=== PATIENT | female | born 1995 | race Two or more races ===

== ENCOUNTER 2019-11-25 05:25 | Inpatient (IN) | payer OTHER ==
--- NOTE | 2019-11-25 06:42 | HP ---
Past Medical History - Primary Care Physician PCP:: Barak Billings - Admission Chief Complaint: 40.4 weeks, labor History of Present Illness: 24 yo f 40.4 weeks ,in labor , fhr cat 1, irregular contraction, cx cm 80 vx , -2 mi, fhr cat 1, care uneventful, GBS negatie History Source: Patient Limitations to Obtaining History: No Limitations - Past Medical History ...: 1 ...Para: 0 ...Term: 0 ...: 0 ...Spon : 0 ...Induced : 0 ...Living Children: 0 ...LMP: 02/16/19 ... Weeks Gestation by Dates: 40.2 ...EDC by Dates: 11/23/19 ...EDC by Sono: 11/21/19 - Past Surgical History Hx Myomectomy: No Hx Transabdominal Cerclage: No - Smoking History Have you smoked in the past 12 months: No - Alcohol/Substance Use Hx Alcohol Use: No History of Substance Use: reports: None - Social History Usual Living Arrangement: Yes: With Spouse History of Recent Travel: No Review of Systems - Review of Systems Constitutional: reports: No Symptoms Eyes: reports: No Symptoms HENT: reports: No Symptoms Neck: reports: No Symptoms Cardiovascular: reports: No Symptoms Respiratory: reports: No Symptoms Gastrointestinal: reports: No Symptoms Genitourinary: reports: No Symptoms Breasts: reports: No Symptoms Reported Musculoskeletal: reports: No Symptoms Integumentary: reports: No Symptoms Neurological: reports: No Symptoms Endocrine: reports: No Symptoms Hematology/Lymphatic: reports: No Symptoms Psychiatric: reports: No Symptoms Physical Exam - Maternity Vital Signs: Vital Signs Temperature 98.5 F 11/25/19 06:04 Pulse Rate 69 11/25/19 06:04 Respiratory Rate 18 11/25/19 06:04 Blood Pressure 107/71 11/25/19 06:04 O2 Sat by Pulse Oximetry (%) Constitutional: Yes: Well Nourished, No Distress, Calm Eyes: Yes: WNL, Conjunctiva Clear, EOM Intact HENT: Yes: WNL, Atraumatic, Normocephalic Neck: Yes: WNL, Supple, Trachea Midline Cardiovascular: Yes: WNL, Regular Rate and Rhythm Breast(s): Yes: WNL - Abdominal Exam/OB Fundal Height: 40 Number of Fetuses: Single Presentation: Vertex Contractions: Yes Regularity: Irregular Intensity: Mod/Strong Monitor Mode: External Heart Rate Location: [facility] Category: I Accelerations: Non-Uniform Decelerations: None - Vaginal Exam/OB Vaginal Bleeding: Bloody Show Speculum Exam: No Dilatation (cm): 3 Effacement (%): 80 Amniotic Membrane Status: Bulging Presentation: Vertex/Position Station: -2 - Physical Exam Musculoskeletal: Yes: WNL Extremities: Yes: WNL Edema: Yes Edema: LLE: Trace, RLE: Trace Deep Tendon Reflex Grade: Normal +2 Psychiatric: Yes: WNL Hemorrhage Risk Assessment - Risk Factors Medium Risk Factors: Yes: None High Risk Factors: Yes: None Risk Score: 1 Risk Level: Medium Risk Problem List - Problems (1) Post term over 40 weeks Code(s): O48.0 - POST-TERM (2) Labor established Code(s): RJH1199 - Assessment/Plan admit [facility] pain management
[2019-11-25 06:43] VITALS: BMI 31.8
[2019-11-25] MEDS: ELECTROLYTE-148 SOLN 1,000 ML IV SCH (06:48)
[2019-11-25 07:21] LABS: BASO % 0.3 % (0-2.0); EOS % 0.2 % (0-4.5); HEMATOCRIT 34.9 % (32.4-45.2); HEMOGLOBIN 12.3 GM/dL (10.7-15.3); LYMPH % 22.9 % (8-40); MCH 33.5 pg (25.7-33.7); MCHC 35.1 g/dl (32.0-36.0); MEAN CELL VOLUME 95.4 fl (80-96); MEAN PLT VOLUME 8.5 fl (7.5-11.1); MONO % 8.1 % (3.8-10.2); NEUT % 68.5 % (42.8-82.8); PLATELET COUNT 196 K/MM3 (134-434); RBC 3.66 M/mm3 (3.60-5.2); RDW 12.5 % (11.6-15.6); WHITE BLOOD COUNT 8.9 K/mm3 (4.0-10.0)
[2019-11-25 07:23] LABS: INR 0.88 (0.83-1.09); PROTHROMBIN TIME (PATIENT) 10.7 SEC (9.7-13.0)
[2019-11-25 07:31] LABS: BLOOD UREA NITROGEN 7.1 mg/dL (7-18); CALCIUM 8.9 mg/dL (8.5-10.1); CREATININE 0.6 mg/dL (0.55-1.3); POTASSIUM 4.1 mmol/L (3.5-5.1)
[2019-11-25] MEDS ORDERED: ePHEDrine SULFATE 50 MG/1 ML AMPULE ONE (07:38)
[2019-11-25] MEDS ORDERED: PHENYLEPHRINE HCL 10 MG/1 ML SINGLE DOSE VIAL ONE (07:38)
[2019-11-25] MEDS ORDERED: PCA PUMP NR ONE (07:40)
[2019-11-25] MEDS ORDERED: SUCCINYLCHOLINE CHLORIDE 200 MG/10 ML SYRINGE ONE (07:43)
[2019-11-25] MEDS ORDERED: FENTANYL/BUPIVACAINE/NS/PF - PCEA - 50 ML DISP.SYRIN EP ONE ×2 (07:58→11:47)
[2019-11-25] MEDS ORDERED: NALOXONE HCL 0.4 MG/ML VIAL IVPUSH PRN (08:33)
[2019-11-25] MEDS ORDERED: FENTANYL/BUPIVACAINE/NS/PF - PCEA - 50 ML DISP.SYRIN EP SCH ×2 (08:45→12:30)
[2019-11-25] MEDS ORDERED: OXYTOCIN 30 UNITS in 0.9% NS 30 UNIT/500 ML INFUS.BAG IVPB SCH (09:30)
[2019-11-25] MEDS ORDERED: OXYTOCIN 20 UNITS in 0.9% NS 20 UNIT/1,000 ML INFUS.BAG IV ONE ×2 (13:15→18:13)
[2019-11-25] MEDS ORDERED: BENZOCAINE 28 GM HEMORRHOIDAL OINTMENT TP PRN (15:11)
[2019-11-25] MEDS ORDERED: WITCH HAZEL 50% (TUCKS) 40 PAD/JAR PAD TP PRN (15:11)
[2019-11-25] MEDS ORDERED: BISACODYL 10 MG SUPP.RECT RC PRN (15:11)
[2019-11-25] MEDS ORDERED: METHYLERGONOVINE MALEATE 0.2 MG/1 ML AMP IM PRN (15:11)
[2019-11-25] MEDS ORDERED: BENZOCAINE 20% 57 GM BOTTLE TP PRN (15:11)
--- NOTE | 2019-11-25 15:14 | PN ---
Progress Note (short form) - Note Progress Note: 210 PM cx full 100 vx 2+ station , bulging membrane , AROM clear fhr cat 1, regular contraction Problem List - Problems (1) Post term over 40 weeks Code(s): O48.0 - POST-TERM (2) Labor established Code(s): FLQ0559 -
--- NOTE | 2019-11-25 15:14 | PN ---
Delivery - Delivery Vaginal Delivery: Spontaneous (cx full , head on pernium, medain episiotomy done , head delivered , nasopharynx suctioned , cord around neck once reduced , ant and post .shoulder with no difficulty , live baby girl , 9/9, placenat complete spontaneeous , median episiotomy repaired with 2.o chromic , in 3 layers , baby bonded with mom , ebl 400 cc , rectal exam good tone ,no defect . , post delivery had oozing seen at vaginal interetous one figure of 8. 2.o chromic suture placed , no active bleeding seen) Type of Anesthesia: Local, Epidural Episiotomy/Laceration: Midline Delivery, Single - 1 Minute Total Score: 8 5 Minutes Total Score: 9 - Feeding Plan Initial Plan: Elected not to breastfeed exclusively throughout hospitalization
[2019-11-25] MEDS ORDERED: BUTORPHANOL TARTRATE 2 MG/ML VIAL IVPUSH ONE (15:20)
[2019-11-25] MEDS ORDERED: BUTORPHANOL TARTRATE 2 MG/ML VIAL ONE (15:22)
[2019-11-25] MEDS ORDERED: LIDOCAINE HCL 1% PRESERVATIVE FREE - 30ML VIAL ONE ×2 (15:23→17:49)
[2019-11-25] MEDS ORDERED: IBUPROFEN 600 MG TABLET (FP) PO ONE (17:03)
[2019-11-25] MEDS ORDERED: ACETAMINOPHEN 325 MG TABLET (FP) ONE (17:03)
[2019-11-25] MEDS: IBUPROFEN 600 MG TABLET (FP) PO PRN (17:05)
[2019-11-25] MEDS: ACETAMINOPHEN 325 MG TABLET (FP) PO PRN (17:36)
[2019-11-25] MEDS: OXYTOCIN 20 UNITS in 0.9% NS 20 UNIT/1,000 ML INFUS.BAG IV SCH (18:15)
[2019-11-25 19:04] LABS: BASO % 0.1 % (0-2.0); HEMOGLOBIN 12.3 GM/dL (10.7-15.3); LYMPH % 8.8 % (8-40); MCH 33.3 pg (25.7-33.7); MCHC 34.3 g/dl (32.0-36.0); MEAN CELL VOLUME 97.2 fl (80-96); MEAN PLT VOLUME 8.8 fl (7.5-11.1); MONO % 7.8 % (3.8-10.2); NEUT % 83.3 % (42.8-82.8); PLATELET COUNT 173 K/MM3 (134-434); RBC 3.71 M/mm3 (3.60-5.2); RDW 12.5 % (11.6-15.6); WHITE BLOOD COUNT 12.8 K/mm3 (4.0-10.0)
[2019-11-25] MEDS ORDERED: ceFAZolin SODIUM 1 GM VIAL IVPB ONE (19:15)
[2019-11-25] MEDS ORDERED: ONDANSETRON 4 MG/2 ML VIAL IVPUSH PRN (20:46)
[2019-11-25] MEDS ORDERED: LACTATED RINGERS SOLUTION 1,000 ML IV SCH (21:00)
--- NOTE | 2019-11-25 21:56 | OP ---
Operative Note - Note: Operative Date: 11/25/19 Pre-Operative Diagnosis: post bleedng Operation: EUA, suction D&C , examination of cervix and re suturing of episiotomy Findings: vaginal mucosa edema, and oozing , Surgeon: Barak Billings Alarm Field Technician: Matthew Cook ([facility]) Anesthesia: Spinal Specimens Removed: none Estimated Blood Loss (mls): 200 Drains & Tubes with Location: epps Blood Volume Replaced (mls): 0 Operative Report Dictated: Yes
[2019-11-25] MEDS ORDERED: HYDROmorphone HCl 2 MG/ML VIAL ONE (22:24)
[2019-11-25] MEDS ORDERED: HYDROmorphone HCl 2 MG/ML VIAL IVPB ONE (22:26)
[2019-11-25] MEDS ORDERED: HYDROmorphone HCL CARPU-JECT 2 MG/1 ML DISP.SYRIN IVPB ONE (22:26)
[2019-11-25] MEDS: FERROUS SO4 325 MG TABLET (FP) PO SCH (23:52)
[2019-11-26] MEDS: ACETAMINOPHEN 1000 MG/100 ML VIAL (NON FORMULARY) IVPB PRN ×3 (00:07→14:26)
[2019-11-26] MEDS: OXYTOCIN 20 UNITS in 0.9% NS 20 UNIT/1,000 ML INFUS.BAG IV SCH (00:09)
[2019-11-26] MEDS: oxyCODONE HCL 5 MG TABLET PO PRN ×3 (04:09→22:36)
[2019-11-26] MEDS: ACETAMINOPHEN 325 MG TABLET (FP) PO PRN (04:10)
[2019-11-26 08:18] LABS: BASO % 0.3 % (0-2.0); EOS % 0.3 % (0-4.5); HEMATOCRIT 29.9 % (32.4-45.2); HEMOGLOBIN 10.6 GM/dL (10.7-15.3); LYMPH % 18.4 % (8-40); MCH 34.1 pg (25.7-33.7); MCHC 35.3 g/dl (32.0-36.0); MEAN CELL VOLUME 96.8 fl (80-96); MEAN PLT VOLUME 8.6 fl (7.5-11.1); MONO % 8.3 % (3.8-10.2); NEUT % 72.7 % (42.8-82.8); PLATELET COUNT 149 K/MM3 (134-434); RBC 3.09 M/mm3 (3.60-5.2); RDW 12.3 % (11.6-15.6); WHITE BLOOD COUNT 9.4 K/mm3 (4.0-10.0)
--- NOTE | 2019-11-26 09:48 | PN ---
Post Progress Note - Subjective Subjective: Patient reports headache and back pain. Reports did not sleep much last night. Reports tolerating oral intake without nausea or vomiting. Denies fevers or chills. Voiding. Desires to breastfeed. Passing flatus. Type of Delivery: Vital Signs: Vital Signs Temperature 97.7 F 11/26/19 06:35 Pulse Rate 80 11/26/19 06:35 Respiratory Rate 18 11/26/19 06:35 Blood Pressure 103/52 L 11/26/19 06:35 O2 Sat by Pulse Oximetry (%) 95 11/25/19 23:05 Breast Exam: Yes: Soft Uterus: Yes: Fundus Firm Abdomen/GI: Yes: Abdomen soft, Tender (mild tenderness), Passing flatus, Tolerating PO. No: Abdominal Distention Lochia: Yes: Serosa Lochia, amount: Moderate Extremities: Yes: Calves non-tender. No: Edema Perineum: Yes: Episiotomy - Labs Labs: CBC WBC 9.4 K/mm3 (4.0-10.0) 11/26/19 07:42 RBC 3.09 M/mm3 (3.60-5.2) L 11/26/19 07:42 Hgb 10.6 GM/dL (10.7-15.3) L 11/26/19 07:42 Hct 29.9 % (32.4-45.2) L D 11/26/19 07:42 MCV 96.8 fl (80-96) H 11/26/19 07:42 MCH 34.1 pg (25.7-33.7) H 11/26/19 07:42 MCHC 35.3 g/dl (32.0-36.0) 11/26/19 07:42 RDW 12.3 % (11.6-15.6) 11/26/19 07:42 Plt Count 149 K/MM3 (134-434) 11/26/19 07:42 MPV 8.6 fl (7.5-11.1) 11/26/19 07:42 Absolute Neuts (auto) 6.9 K/mm3 (1.5-8.0) 11/26/19 07:42 Neutrophils % 72.7 % (42.8-82.8) 11/26/19 07:42 Lymphocytes % 18.4 % (8-40) D 11/26/19 07:42 Monocytes % 8.3 % (3.8-10.2) 11/26/19 07:42 Eosinophils % 0.3 % (0-4.5) D 11/26/19 07:42 Basophils % 0.3 % (0-2.0) 11/26/19 07:42 Nucleated RBC % 0 % (0-0) 11/26/19 07:42 Assessment/Plan 24 yo PPD # 1 s/p complicated by PPH, s/p D&C, afebrile, vital signs stable 1. Headache - suspect secondary to fatigue, lack of sleep s/p oxycodone currently on clears, will give caldolor Plan to advance diet 2. Will continue to monitor for signs of infection 3. AM CBC with mild anemia, will monitor for signs of symptomatic anemia 4. Rh positive status, no rhogam indicated. 5. Encourage ambulation 6. Discharge planning pending patient continues to be afebrile, vital signs stable, voiding without difficulty and no additional bleeding
[2019-11-26] MEDS ORDERED: IBUPROFEN 800 MG/8 ML IJ IVPB ONE (09:57)
[2019-11-26] MEDS: SENNOSIDES 8.6MG TABLET (FP) PO SCH ×2 (10:23→21:06)
[2019-11-26] MEDS: PRENATAL VITAMINS W/ FOLIC ACID TABLET (FP) PO SCH (10:47)
[2019-11-26] MEDS: FERROUS SO4 325 MG TABLET (FP) PO SCH ×2 (10:47→21:06)
--- NOTE | 2019-11-26 13:21 | OP ---
DATE OF OPERATION: 11/25/2019 PREOPERATIVE DIAGNOSIS: vaginal bleeding. POSTOPERATIVE DIAGNOSIS: vaginal bleeding. PROCEDURE: Examination under anesthesia and exploration of the uterus, cervix, vagina, and episiotomy, and episiotomy repair. SURGEON: Lokesh Archer MD STUDIO MUSICIAN: Matthew Cook MD; Alonso Batista MD ANESTHESIA: Spinal anesthesia. ANESTHESIOLOGIST: TIGRE Gonsalves ESTIMATED BLOOD LOSS: 200 mL. INDICATION: I was called post delivery to evaluate the patient with some vaginal trickling and complaining of severe vaginal pain. On arrival to delivery room, patient would now allow any examination or evaluation of the bleeding. Therefore, to rule out hematoma, patient was advised to go examination under anesthesia and exploration of the vagina and episiotomy area. DESCRIPTION OF PROCEDURE: Patient was taken to the operating room. Under adequate spinal anesthesia, vagina, perineum, and abdomen were prepped and draped. [place] catheter was inserted. First the episiotomy area was evaluated, and there was no active bleeding, but the vaginal mucosa was very edematous and was oozing with the touch and the manipulation with the retractors. Cervical area was grasped with 2 ring forceps and evaluated. No active bleeding or laceration of the cervix was seen. Then suction curet was inserted into the uterine cavity, and the uterus was suctioned. Again, no products of conception were seen. Then both vaginal fornices were evaluated, no sign of hematoma or laceration. Again the vaginal mucosa was very edematous and easy bleeding with contact. Therefore, the episiotomy sutures, several of them were removed, and then again vaginal mucosa was evaluated. No hematoma or laceration was seen. Several sutures of [id number] 2-0 chromic sutures were placed at the vaginal introitus, which was slightly oozing, but no active bleeding. Then the episiotomy sutures that were removed were replaced with 2-0 chromic suture, and the episiotomy was repaired. the mucosa was edematous and oozing, Surgicel gauze was placed in the vaginal area for hemostasis. Patient tolerated the procedure well, left the OR in good condition. LOKESH ARCHER M.D. /[id number]
[2019-11-26] MEDS: ACETAMINOPHEN/CAFFEINE/BUTALBITAL 1 TAB PO PRN (19:00)
[2019-11-26] MEDS ORDERED: SENNOSIDES/DOCUSATE COMBO (SENNA PLUS) TABLET (UD) PO PRN (22:00)
--- NOTE | 2019-11-27 05:19 | DS ---
Physical Exam-CLERK ENTRY LEVEL Vital Signs: Vital Signs Temperature 98.4 F 11/26/19 22:00 Pulse Rate 85 11/26/19 22:00 Respiratory Rate 18 11/26/19 22:00 Blood Pressure 118/74 11/26/19 22:00 O2 Sat by Pulse Oximetry (%) 100 11/26/19 11:00 Labs: CBC, BMP 11/26/19 07:42 11/25/19 06:59 Delivery - Delivery Vaginal Delivery: Spontaneous (cx full , head on pernium, medain episiotomy done , head delivered , nasopharynx suctioned , cord around neck once reduced , ant and post .shoulder with no difficulty , live baby girl , 9/9, placenat complete spontaneeous , median episiotomy repaired with 2.o chromic , in 3 layers , baby bonded with mom , ebl 400 cc , rectal exam good tone ,no defect . , post delivery had oozing seen at vaginal interetous one figure of 8. 2.o chromic suture placed , no active bleeding seen) Type of Anesthesia: Local, Epidural Episiotomy/Laceration: Midline EBL (cc): 400 Delivery, Single - Stages of Labor Date 1st Stage Initiatied: 11/24/19 Time 1st Stage Initiated: 23:00 Date 2nd Stage Initiated: 11/25/19 Time 2nd Stage Initiated: 14:10 Date of Delivery: 11/25/19 Time of Delivery: 14:25 Time Placenta Delivered: 14:30 - Condition of [employer]/Nursing Home Aide Present: [place]: Carlos Eduardo Allen Gender: Female Weight: 7 lb Position: Left, OA Total Hours ROM (Hrs/Mins): 20mins - 1 Minute Total Score: 8 5 Minutes Total Score: 9 - [place] Feeding Plan Initial Plan: Elected not to breastfeed exclusively throughout hospitalization Discharge Summary Problems reviewed: Yes Reason For Visit: LABOR ADMIT Current Active Problems Labor established (Acute) Post term over 40 weeks (Acute) Procedures: Principal: vaginal delivery Other Procedures: D&C, EUA Hospital Course: Patient was admitted in labor. She progressed to deliver a viable female via . Immediate noted to have increased bleeding, underwent EUA/D&C PPD # 1 patient ambulated, voiding, passing gas, tolerating oral intake. Noted to have headache, normal BPs, no scotomata or RUQ pain. PPD #2 noticed to have continued positional HARP, suspected postdural puncture headhace PPD # 3 underwent blood patch She fulfilled all criteria for discharge home POD #4 Condition: Good - Instructions Diet, Activity, Other Instructions: Follow up 2-3 weeks for early visit Physical activity Resume your normal everyday activity as tolerated no heavy lifting or exercise until seen by your surgeon. You may walk unlimited yasmani of and climb stairs. You may resume driving the car when you feel safe and comfortable behind the wheel. No sexual activity as instructed. Diet There are no dietary restrictions. Eat healthy, high-fiber foods. Drink 6 to 8 glasses of liquid each day. This will assist in keeping your bowels are regular. Pain management You may take Tylenol or acetaminophen or Ibuprofen (for example, Motrin, Advil etc.) for pain. Any prescription medication is ordered should be taken as prescribed for moderate to severe pain. Call MD for any of the following: Severe pain not relieved by medication Fever of 101 or higher Excessive bleeding or drainage on dressing Inability to urinate Referrals: Barak Billings MD [Staff Physician] - Disposition: HOME - Home Medications Comprehensive Discharge Medication List: Ambulatory Orders Pnv No.95/Ferrous Fum/Folic AC [ Formula] 1 each PO DAILY 11/25/19 Oxycodone HCl/Acetaminophen [Percocet 5-325 mg Tablet] 1 tab PO Q6H #10 tablet MDD 4 11/27/19 Prescription Drug Monitoring Program (I-STOP) results: I-STOP reviewed and no issues identified (Reference #: [id number])
[2019-11-27] MEDS: ACETAMINOPHEN/CAFFEINE/BUTALBITAL 1 TAB PO PRN (06:15)
[2019-11-27] MEDS: ELECTROLYTE-148 SOLN 1,000 ML IV SCH (07:28)
--- NOTE | 2019-11-27 08:04 | PN ---
Progress Note (short form) - Note Progress Note: 24F POD#2 spinal anesthesia for vaginal lac repair. Pt c/o positional headache. Pain 5/10 in pain while sitting/standing and 1/10 while lying down. No focal neurological symptoms. VSS. Motor/sensory exam intact. Pain is highly suspicious for PDPH. Management options explained to patient included conservative therapy: Tylenol, hydration and caffeine vs. blood patch. At this time patient wishes to proceed with conservative therapy for the next 24 hours and to re-evaluate.
[2019-11-27] MEDS: SENNOSIDES 8.6MG TABLET (FP) PO SCH ×2 (09:22→22:37)
[2019-11-27] MEDS: PRENATAL VITAMINS W/ FOLIC ACID TABLET (FP) PO SCH (09:22)
[2019-11-27] MEDS: FERROUS SO4 325 MG TABLET (FP) PO SCH ×2 (09:22→22:37)
[2019-11-27] MEDS: ACETAMINOPHEN 325 MG TABLET (FP) PO PRN (11:48)
[2019-11-27] MEDS: oxyCODONE HCL 5 MG TABLET PO PRN ×2 (16:12→22:41)
[2019-11-27] MEDS: OXYTOCIN 20 UNITS in 0.9% NS 20 UNIT/1,000 ML INFUS.BAG IV SCH (18:14)
--- NOTE | 2019-11-28 08:08 | PN ---
Progress Note (short form) - Note Progress Note: Anesthesia Post op/pain Pt seen and examined S:Alert and awake comfortable with mild residual pain O: Vital Signs Temperature 97.5 F L 11/27/19 22:00 Pulse Rate 86 11/27/19 22:00 Respiratory Rate 18 11/27/19 22:00 Blood Pressure 114/55 L 11/27/19 22:00 O2 Sat by Pulse Oximetry (%) 100 11/26/19 11:00 CBC, BMP 11/26/19 07:42 11/25/19 06:59 A/P: Current Active Problems Labor established (Acute) Post term over 40 weeks (Acute) s/p c section PDP headache better Doing well post op Continue current care Kwame Manning MD
[2019-11-28] MEDS: IBUPROFEN 600 MG TABLET (FP) PO PRN ×2 (08:48→13:03)
[2019-11-28] MEDS: ACETAMINOPHEN 325 MG TABLET (FP) PO PRN ×2 (08:49→13:03)
--- NOTE | 2019-11-28 09:20 | PN ---
Post Progress Note - Subjective Subjective: Patient reports continued headache s/p bloodpatch Improved laying flat No visual changes, no difficulty with light Also reports back/neck pain Normal lochia Passing flatus, tolerating PO intake Post Day: 3 Type of Delivery: Vital Signs: Vital Signs Temperature 98.3 F 11/28/19 09:07 Pulse Rate 87 11/28/19 09:07 Respiratory Rate 18 11/28/19 09:07 Blood Pressure 107/68 11/28/19 09:07 O2 Sat by Pulse Oximetry (%) 100 11/26/19 11:00 Breast Exam: Yes: Soft Uterus: Yes: Fundus Firm Abdomen/GI: Yes: Abdomen soft, Passing flatus, Tolerating PO. No: Abdominal Distention, Tender Lochia: Yes: Rubra Lochia, amount: Small Extremities: Yes: Calves non-tender. No: Edema Perineum: Yes: Episiotomy Activity: Ambulating - Labs Labs: CBC WBC 9.4 K/mm3 (4.0-10.0) 11/26/19 07:42 RBC 3.09 M/mm3 (3.60-5.2) L 11/26/19 07:42 Hgb 10.6 GM/dL (10.7-15.3) L 11/26/19 07:42 Hct 29.9 % (32.4-45.2) L D 11/26/19 07:42 MCV 96.8 fl (80-96) H 11/26/19 07:42 MCH 34.1 pg (25.7-33.7) H 11/26/19 07:42 MCHC 35.3 g/dl (32.0-36.0) 11/26/19 07:42 RDW 12.3 % (11.6-15.6) 11/26/19 07:42 Plt Count 149 K/MM3 (134-434) 11/26/19 07:42 MPV 8.6 fl (7.5-11.1) 11/26/19 07:42 Absolute Neuts (auto) 6.9 K/mm3 (1.5-8.0) 11/26/19 07:42 Neutrophils % 72.7 % (42.8-82.8) 11/26/19 07:42 Lymphocytes % 18.4 % (8-40) D 11/26/19 07:42 Monocytes % 8.3 % (3.8-10.2) 11/26/19 07:42 Eosinophils % 0.3 % (0-4.5) D 11/26/19 07:42 Basophils % 0.3 % (0-2.0) 11/26/19 07:42 Nucleated RBC % 0 % (0-0) 11/26/19 07:42 Assessment/Plan 24 yo PPD # 3 s/p complicated by PPH, s/p D&C, afebrile, vital signs stable 1. Headache - s/p evaluation by anesthesia and bloodpatch Will plan to monitor today, if sx improved, plan to DC home 2. Patient encouraged to contact MD for: - Severe pain not controlled by oral pain medication - Fevers or chills - Nausea or vomiting, intolerance of oral intake 3. Patient to follow up in office in 4-6 weeks for visit
--- NOTE | 2019-11-28 09:30 | PROC ---
Procedure Note Procedure: Procedure Note Called to place an epidural blood patch. Consent obtained. BP 107/73/ 73 Streil prep and drape L3-4 level 18G tuohy needle X1 +ALLYSON In sterile fashion blood obtained by Leyda Woodson R.N. 20 cc blood injected Pt tolerated procedure well. BP 113/67 67 Pt instructed to lie down. To be evaluated for improvement. Kwame Manning MD
[2019-11-28] MEDS: SENNOSIDES 8.6MG TABLET (FP) PO SCH ×2 (11:48→21:32)
[2019-11-28] MEDS: PRENATAL VITAMINS W/ FOLIC ACID TABLET (FP) PO SCH (11:48)
[2019-11-28] MEDS: FERROUS SO4 325 MG TABLET (FP) PO SCH ×2 (11:48→21:32)
[2019-11-29] MEDS: PRENATAL VITAMINS W/ FOLIC ACID TABLET (FP) PO SCH (09:01)
[2019-11-29] MEDS: IBUPROFEN 600 MG TABLET (FP) PO PRN (09:01)
[2019-11-29] MEDS: FERROUS SO4 325 MG TABLET (FP) PO SCH (09:02)
[2019-11-29] MEDS: ACETAMINOPHEN 325 MG TABLET (FP) PO PRN (09:02)
[2019-11-29] MEDS: SENNOSIDES 8.6MG TABLET (FP) PO SCH (09:02)
[2019-11-29 11:23] VITALS: BP 103/64; PULSE 71; TEMP 98.2
--- NOTE | 2019-11-29 12:19 | PN ---
Post Progress Note - Subjective Subjective: Feels much improved No Headache Reports tolerating oral intake without nausea or vomiting. Denies fevers or chills. Voiding. Desires to breastfeed. Passing flatus. Type of Delivery: Vital Signs: Vital Signs Temperature 98.2 F 11/29/19 09:00 Pulse Rate 71 11/29/19 09:00 Respiratory Rate 18 11/29/19 09:00 Blood Pressure 103/64 11/29/19 09:00 O2 Sat by Pulse Oximetry (%) 100 11/26/19 11:00 Breast Exam: Yes: Soft Uterus: Yes: Fundus Firm Abdomen/GI: Yes: Abdomen soft Lochia: Yes: Rubra Lochia, amount: Small Extremities: Yes: Calves non-tender Perineum: Yes: Laceration Activity: Ambulating - Labs Labs: CBC WBC 9.4 K/mm3 (4.0-10.0) 11/26/19 07:42 RBC 3.09 M/mm3 (3.60-5.2) L 11/26/19 07:42 Hgb 10.6 GM/dL (10.7-15.3) L 11/26/19 07:42 Hct 29.9 % (32.4-45.2) L D 11/26/19 07:42 MCV 96.8 fl (80-96) H 11/26/19 07:42 MCH 34.1 pg (25.7-33.7) H 11/26/19 07:42 MCHC 35.3 g/dl (32.0-36.0) 11/26/19 07:42 RDW 12.3 % (11.6-15.6) 11/26/19 07:42 Plt Count 149 K/MM3 (134-434) 11/26/19 07:42 MPV 8.6 fl (7.5-11.1) 11/26/19 07:42 Absolute Neuts (auto) 6.9 K/mm3 (1.5-8.0) 11/26/19 07:42 Neutrophils % 72.7 % (42.8-82.8) 11/26/19 07:42 Lymphocytes % 18.4 % (8-40) D 11/26/19 07:42 Monocytes % 8.3 % (3.8-10.2) 11/26/19 07:42 Eosinophils % 0.3 % (0-4.5) D 11/26/19 07:42 Basophils % 0.3 % (0-2.0) 11/26/19 07:42 Nucleated RBC % 0 % (0-0) 11/26/19 07:42 Assessment/Plan 24yo P1 now, s/p doing well, VSS s/p Blood patch HARP resolved d/c home RTO 4-6wks NPV for 6wks
== END 2019-11-29 14:45 | disposition home or self-care (01) | DRG 541 ==
LOC: JDEL 05:25 → JLDR 06:10 → J3W 23:00
PROVIDERS: ADMIT Obstetrics & Gynecology; ATTEND Obstetrics & Gynecology
PROC: 10D17ZZ Extraction of Products of Conception, Retained, Via Natural or Artificial Opening (ICD-10-PCS; 2019-11-25)
PROC: 0W3R7ZZ Control Bleeding in Genitourinary Tract, Via Natural or Artificial Opening (ICD-10-PCS; 2019-11-25)
PROC: 10907ZC Drainage of Amniotic Fluid, Therapeutic from Products of Conception, Via Natural or Artificial Opening (ICD-10-PCS; 2019-11-25)
PROC: 0W8NXZZ Division of Female Perineum, External Approach (ICD-10-PCS; 2019-11-25)
PROC: 10E0XZZ Delivery of Products of Conception, External Approach (ICD-10-PCS; principal; 2019-11-25 18:45)
PROC: 3E0R3GC Introduction of Other Therapeutic Substance into Spinal Canal, Percutaneous Approach (ICD-10-PCS; 2019-11-28)
DX: O48.0 Post-term pregnancy (principal); O72.1 Other immediate postpartum hemorrhage; O69.81X0 Labor and delivery complicated by cord around neck, without compression, not applicable or unspecified; O90.81 Anemia of the puerperium; D64.9 Anemia, unspecified; G97.1 Other reaction to spinal and lumbar puncture; R51.9 Headache, unspecified; Z3A.40 40 weeks gestation of pregnancy; Z37.0 Single live birth
CPT/HCPCS: 36415; 59025; 59409; 80048; 85025; 85610; 85730; 86780; 86850; 86900; 86901; 86922; 87389; 94760; J0131